=== PATIENT | female | born 1935 | race Caucasian/White ===

== ENCOUNTER → 2017-07-20 | Day surgery (SDC) | payer MEDICARE ==
[~2017-07-20] VITALS: Ht 149.9 cm; Wt 63.5 kg
[~2017-07-20] MED LIST: ACETAMINOPHEN 325 MG TAB PO PRN; ASPI81TA11 PO; CALTCHW5 PO; CENTCHW4 CHEW; CHLORHEXIDINE GLUCONATE 2 % 1 PACK (2 CLOTHS) TOPICAL PRN; ENAL10TA PO; HYALURONIDASE/LIDOCAINE/EPINEPHRINE/BUPIVACAINE 6 ML SYR LEFT EYE ONE; HYDR12.57 PO; INSULIN HUMAN REGULAR 1,000 UNITS/10 ML VIAL SQ PRN; LACTATED RINGER'S 1000 ML IV PRN; LIDOCAINE HCL 1% PF 30 ML VIAL ONE; LOVA20TA PO; METOPROLOL TARTRATE 25 MG TAB PO PRN; OCUVTAB4 PO; PLAV75TA29 PO; POVIDONE IODINE 5% (ANTISEPSIS KIT) 4 APPLICATIONS EACH NARE PRN; PROPARACAINE HCL 0.5% OPHT SOLN 15 ML BTL LEFT EYE ONE; PROPOFOL 200 MG/20 ML AMP ONE; SODIUM CHLORID 0.9% 500 ML IV PRN; SYSTSOL11 EACH EYE; TOBRAMYCIN/DEXAMETHASONE OPTH OINT 3.5 GM TUBE ONE
[2017-07-20 09:30] VITALS: PULSE 54
[2017-07-20] MEDS: FLURBIPROFEN 0.03% OPHT SOLN 2.5 ML BTL LEFT EYE SCH ×4 (09:30→09:45)
[2017-07-20] MEDS: CYCLOPENTOLATE HCL 1% OPHT SOLN 2 ML BTL LEFT EYE SCH ×4 (09:30→09:45)
[2017-07-20] MEDS: PHENYLEPHRINE HCL 10% OPTH SOLN 5 ML BTL LEFT EYE SCH ×4 (09:30→09:45)
[2017-07-20] MEDS: TROPICAMIDE 1% OPHT SOLN 15 ML BTL LEFT EYE SCH ×4 (09:30→09:45)
[2017-07-20 10:01] VITALS: PULSE 67
[2017-07-20 10:41] VITALS: TEMP 98
[2017-07-20 11:05] VITALS: BP 143/52; PULSE 68; RESP 16; O2SAT 100
--- NOTE | 2017-07-21 09:06 | MP ---
cc: ALEJANDRO KRISHNAN M.D. [facility] #[id number] DATE OF SURGERY 07/20/2017 PREOPERATIVE DIAGNOSIS Visually significant cataract left eye. POSTOPERATIVE DIAGNOSIS Visually significant cataract left eye. OPERATION Phacoemulsification with posterior chamber lens implantation, left eye. SURGEON Alejandro Krishnan MD ANESTHESIA Retrobulbar with MAC. COMPLICATIONS None PROCEDURE After informed consent was obtained, the patient was brought into the operative suite and placed on appropriate monitors by the Anesthesia Service. The patient had received a prior retrobulbar injection of local anesthetic by the Anesthesia Service in the holding area. The patient's operative eye was then prepped and draped in the usual sterile fashion. A wire lid speculum was placed. A paracentesis incision was made in the peripheral cornea with a 1 mm palmer keratome. The anterior chamber was filled with viscoelastic. The anterior chamber was then entered through a stepped, clear corneal incision using a sharp 3 mm palmer keratome. A circular tear capsulorrhexis was then made with a bent needle cystitome. Following hydrodissection of the lens nucleus with balanced saline, phacoemulsification of the nucleus was performed using a modified chopping technique. The remaining cortex was removed with irrigation/aspiration. The prior two procedures were both performed using the handpieces of the [employer] phaco unit. The capsular bag was then filled with viscoelastic. The intraocular lens was then injected into the capsular bag and positioned. The type of intraocular lens and its power can be found elsewhere in this chart. The remaining viscoelastic was then removed from the anterior chamber with the IA handpiece. The anterior chamber was reformed with balanced saline. The wound was then closed securely with stromal hydration. It was found to be watertight to an intraocular pressure of at least 30 mmHg by palpation. A small amount of balanced salt solution was then removed through the paracentesis site and the intraocular pressure at the end of the case was approximately 20 by palpation. All drapes were then removed. TobraDex ointment was then placed in the eye, which was closed beneath a semi-pressure patch dressing. The patient tolerated this procedure well and left the operating room awake and alert. The patient is to follow-up in my office in the morning. MD DANTE Camilo/ESTHELA /8:37 AM 8:57 AM
== END | disposition home or self-care (01) ==
LOC: PHSDC 08:12
PROVIDERS: ATTEND Optometrist Occupational Vision
DX: H25.812 Combined forms of age-related cataract, left eye (principal); H35.3122 Nonexudative age-related macular degeneration, left eye, intermediate dry stage; H43.813 Vitreous degeneration, bilateral; H04.123 Dry eye syndrome of bilateral lacrimal glands; I44.0 Atrioventricular block, first degree; H35.30 Unspecified macular degeneration; I35.0 Nonrheumatic aortic (valve) stenosis; I10 Essential (primary) hypertension; D69.6 Thrombocytopenia, unspecified; I27.20 Pulmonary hypertension, unspecified; I34.0 Nonrheumatic mitral (valve) insufficiency; M54.16 Radiculopathy, lumbar region; E78.5 Hyperlipidemia, unspecified
CPT/HCPCS: 00142; 66984; J7040; V2632

== ENCOUNTER 2018-07-25 10:50 | Inpatient (IN) ==
[2018-07-25] MEDS: Sod Chloride 0.9% Inj 1,000 ML IV.CONT SCH ×2 (03:30→15:30)
[2018-07-25] MEDS ORDERED: Sodium Chlor 0.9% Inj 500 ML IV.CONT ONE (11:15)
[2018-07-25] MEDS ORDERED: Chlorhexidine Gluconate 2% 1 Pack (2 Cloths) TOPICAL ONE (11:15)
[2018-07-25] MEDS ORDERED: Metoprolol Tartrate 25 MG Tablet PO ONE (11:15)
[2018-07-25] MEDS ORDERED: Aspirin 325 MG Tablet ONE (11:26)
[2018-07-25] MEDS ORDERED: Mupirocin 2% Nasal Oint Topical Syringe EACH NARE SCH (11:30)
[2018-07-25] MEDS ORDERED: Aspirin 325 MG Tablet PO SCH (11:30)
[2018-07-25] MEDS ORDERED: Chlorhexidine Gluconate 2% 1 Pack (2 Cloths) TOPICAL SCH (11:30)
[2018-07-25 11:59] LABS: Baso # (Auto) 0.1 th/mm3 (0.0-0.2); Baso % (Auto) 1.1 % (0.0-2.0); Eos # (Auto) 0.1 th/mm3 (0.0-0.4); Eos % (Auto) 2.6 % (0.0-4.0); Hematocrit 39.4 % (35.0-46.0); Hemoglobin 13.2 gm/dL (11.6-15.3); Lymph # (Auto) 1.8 th/mm3 (1.0-4.8); Lymph % (Auto) 32.8 % (9.0-44.0); Mean Corpuscular HGB Conc 33.6 % (32.0-36.0); Mean Corpuscular Volume 89.4 fL (80.0-100.0); Mean Platelet Volume 8.6 fL (7.0-11.0); Mono # (Auto) 0.4 th/mm3 (0.0-0.9); Mono % (Auto) 7.8 % (0.0-8.0); Neut % (Auto) 55.7 % (16.0-70.0); Platelet Count 176 th/mm3 (150-450); Red Blood Count 4.41 mil/mm3 (4.00-5.30); Red Cell Distribution Width 15.5 % (11.6-17.2); White Blood Count 5.5 th/mm3 (4.0-11.0)
[2018-07-25] MEDS ORDERED: ceFAZolin 2 GM Premix Inj 2 GM/50 ML PIGGYBACK IV.SIG SCH (12:00)
[2018-07-25 12:05] LABS: Activated Partial Thrombo Time 24.3 sec (24.3-30.1); INR 1.1 Ratio; Prothrombin Time 10.7 sec (9.8-11.6)
[2018-07-25 12:16] LABS: Calcium 9.6 mg/dL (8.5-10.1); Carbon Dioxide 26.2 meq/L (21.0-32.0); Potassium 3.7 meq/L (3.5-5.1)
[2018-07-25] MEDS ORDERED: Heparin 10,000 UNITS/10 ML Vial (for IV use) ONE (12:52)
[2018-07-25] MEDS ORDERED: Protamine Sulfate Inj 50 MG/5 ML Vial ONE (12:52)
[2018-07-25] MEDS ORDERED: Lidocaine PF 1% Inj 5 ML Syringe OTHER ONE (12:59)
--- NOTE | 2018-07-25 13:12 | P.HPCA ---
History of Present Illness Service: Cardiology Primary Care Physician: Andreina Salgado MD Chief Complaint: Severe aortic valve stenosis History of Present Illness: This is an 82-year-old female with past medical history of fibromatosis aortic valve stenosis, hyperlipidemia, hypertension, pulmonary hypertension who presents now for elective transcatheter aortic valve replacement. Patient follows with Dr. Cross in the outpatient setting. Patient had transthoracic echocardiogram which revealed severely reduced aortic valve area 0.66 cm and elevated gradient and abnormal dimensionless index, all consistent with severe aortic valve stenosis. Patient was evaluated by 2 cardiothoracic surgeons and felt to be intermediate risk for traditional surgical aortic valve replacement. Patient underwent full evaluation and workup for transcatheter aortic valve replacement and is here today for scheduled procedure. - Diagnosis (1) Aortic valve stenosis (2) Pulmonary hypertension (3) Chronic diastolic (congestive) heart failure Inpatient Certification: I certify that the inpatient services were ordered in accordance with Medicare regulations governing the order. This includes certification that hospital inpatient services are reasonable and necessary and in the case of services not specified as inpatient-only under 42 CFR 419.22(n), that they are appropriately provided as inpatient services in accordance to with the 2-midnight benchmark under 43 CFR 412.3(e) Review of Systems All other systems reviewed negative except as stated in HPI [facility] - History History Provided By: Patient - Medical History Medical History: Medical History (Last Updated 07/25/18 @ 13:05 by Darren Diez MD) Aortic valvar stenosis CVA (cerebral vascular accident) Chronic diastolic (congestive) heart failure First degree heart block HLD (hyperlipidemia) HTN (hypertension) Left-sided weakness Pulmonary hypertension - Tobacco History Smoking Status: Never smoker - Alcohol History How Often Do You Have a Drink Containing Alcohol: Never Medications and Allergies Active Medications: Active Medications Aspirin (Aspirin) 325 mg PO DIRECTOR IMAGING [facility] Stop: 07/28/18 11:27 Last Admin: 07/25/18 11:35 Dose: 325 mg Chlorhexidine Gluconate (Chlorhexidine 2% Cloth) 3 pack TOPICAL DIRECTOR IMAGING [facility] Stop: 07/28/18 11:27 Lactated Ringer's (Lr 1000 Ml Inj) 1,000 mls @ 30 mls/hr IV.CONT .Q24H ONE Stop: 07/26/18 11:14 Sodium Chloride (Ns Inj) 500 mls @ 30 mls/hr IV.CONT .[id number] ONE Stop: 07/26/18 03:54 Cefazolin Sodium/Dextrose (Ancef 2 Gm Premix Inj) 2 gm in 50 mls @ 100 mls/hr IV.SIG ONCE [facility] Stop: 07/25/18 23:00 Sodium Chloride (Ns Inj) 1,000 mls @ 125 mls/hr IV.CONT .Q8H [facility] Mupirocin (Bactroban 2% Nasal Oint) 1 applicatio EACH NARE DIRECTOR IMAGING [facility] Stop: 07/28/18 11:27 Povidone Iodine (Betadine 5% Antisepsis Kit) 1 applicatio TOPICAL DIRECTOR IMAGING [facility] Stop: 07/28/18 11:27 Allergies Allergy/AdvReac Type Severity Reaction Status Date / Time No Known Allergies Allergy Verified 07/25/18 11:31 Home Medications Medication Instructions Recorded Confirmed Type calcium carbonate-vitamin D3 1 tab PO DAILY 07/25/18 07/25/18 History [Calcium 600 + D(3)] clopidogrel [Plavix] 1 mg/kg PO DAILY 07/25/18 07/25/18 History docusate sodium [Colace] 100 mg PO BID 07/25/18 07/25/18 History lisinopril 10 mg PO DAILY 07/25/18 07/25/18 History lovastatin 20 mg PO QPM 07/25/18 07/25/18 History tramadol 50 mg PO TID 07/25/18 07/25/18 History vit C,S-Po-rplto-lutein-zeaxan 1 tab PO QAM AND QHS 07/25/18 07/25/18 History [PreserVision AREDS-2] Exam Vital signs: Vital Signs 07/25/18 12:01 Temperature 97.6 F Pulse Rate 69 Respiratory Rate 18 Blood Pressure 185/89 H Pulse Oximetry 98 Intake & Output 07/24/18 07/25/18 07/25/18 18:59 06:59 18:59 Weight 64.4 kg Other: Weight On Admission 64.4 kg - Constitutional no acute distress - Routine HEENT Exam Head: Present: normocephalic Eye: Absent: EOMI, PERRL - Routine Neck Exam Absent: JVD - Routine Cardiovascular Exam Present: murmur, irregularly irregular - Routine Abdominal Exam Present: soft, normoactive bowel sounds - Routine Extremities Exam Absent: edema - Routine Neurological Exam Present: oriented X3, CN II-XII intact. Absent: sensory deficit, motor deficit Results 07/25/18 11:05 07/25/18 11:05 Coagulation 07/25/18 Range/Units 11:05 PT 10.7 (9.8-11.6) sec APTT 24.3 (24.3-30.1) sec CBC 07/25/18 Range/Units 11:05 WBC 5.5 (4.0-11.0) th/mm3 RBC 4.41 (4.00-5.30) mil/mm3 Hgb 13.2 (11.6-15.3) gm/dL Hct 39.4 (35.0-46.0) % Plt Count 176 (150-450) th/mm3 Neut # (Auto) 3.0 (1.8-7.7) th/mm3 Lymph # (Auto) 1.8 (1.0-4.8) th/mm3 [place] # (Auto) 0.4 (0.0-0.9) th/mm3 Eos # (Auto) 0.1 (0.0-0.4) th/mm3 Baso # (Auto) 0.1 (0.0-0.2) th/mm3 Comprehensive Metabolic Panel 07/25/18 Range/Units 11:05 Sodium 142 (136-145) meq/L Potassium 3.7 (3.5-5.1) meq/L Chloride 107 (98-107) meq/L Carbon Dioxide 26.2 (21.0-32.0) meq/L BUN 20 H (7-18) mg/dL Creatinine 0.69 (0.50-1.00) mg/dL Calcium 9.6 (8.5-10.1) mg/dL Intake and Output 07/24/18 07/25/18 07/25/18 22:59 06:59 14:59 Other: Weight 64.4 kg Weight On Admission 64.4 kg Patient Weight 07/26/18 06:59 Weight 64.4 kg - EKG Interpretation EKG shows: atrial fibrillation Caprini VTE Risk Assessment Caprini VTE Risk Assessment: Moderate/High Risk (score >= 2) Caprini Risk Assessment Model: Point Value = 1 Point Value = 2 Point Value = 3 Point Value = 5 Age 41-60 Minor surgery BMI > 25 kg/m2 Swollen legs Varicose veins or History of unexplained or recurrent spontaneous Oral contraceptives or hormone replacement Sepsis (< 1 month) Serious lung disease, including pneumonia (< 1 month) Abnormal pulmonary function Acute myocardial infarction Congestive heart failure (< 1 month) History of inflammatory bowel disease Medical patient at bed rest Age 61-74 Arthroscopic surgery Major open surgery (> 45 min) Laparoscopic surgery (> 45 min) Malignancy Confined to bed (> 72 hours) Immobilizing plaster cast Central venous access Age >= 75 History of VTE Family history of VTE Factor V Leiden Prothrombin [id number] Lupus anticoagulant Anticardiolipin antibodies Elevated serum homocysteine Heparin-induced thrombocytopenia Other congenital or acquired thrombophilia Stroke (< 1 month) Elective arthroplasty Hip, pelvis, or leg fracture Acute spinal cord injury (< 1 month) Prophylaxis Regimen: Total Risk Factor Score Risk Level Prophylaxis Regimen 0-1 Low Early ambulation 2 Moderate Order ONE of the following: *Sequential Compression Device (SCD) *Heparin 5000 units SQ BID 3-4 Higher Order ONE of the following medications: *Heparin 5000 units SQ TID *Enoxaparin/Lovenox 40 mg SQ daily (WT < 150 kg, CrCl > 30 mL/min) *Enoxaparin/Lovenox 30 mg SQ daily (WT < 150 kg, CrCl > 10-29 mL/min) *Enoxaparin/Lovenox 30 mg SQ BID (WT < 150 kg, CrCl > 30 mL/min) AND/OR *Sequential Compression Device (SCD) 5 or more Highest Order ONE of the following medications: *Heparin 5000 units SQ TID (Preferred with Epidurals) *Enoxaparin/Lovenox 40 mg SQ daily (WT < 150 kg, CrCl > 30 mL/min) *Enoxaparin/Lovenox 30 mg SQ daily (WT < 150 kg, CrCl > 10-29 mL/min) *Enoxaparin/Lovenox 30 mg SQ BID (WT < 150 kg, CrCl > 30 mL/min) AND *Sequential Compression Device (SCD) Assessment and Plan - Assessment (1) Aortic valve stenosis Code(s): I35.0 - Nonrheumatic aortic (valve) stenosis Status: Acute (2) Pulmonary hypertension Code(s): I27.20 - Pulmonary hypertension, unspecified Status: Acute (3) Chronic diastolic (congestive) heart failure Code(s): I50.32 - Chronic diastolic (congestive) heart failure Status: Acute - Plan This is an 82-year-old female with diagnosis of severe aortic valve stenosis. Preoperative workup: STS score 5.7% [place] [employer] functional class III symptoms Body mass index 31 Frailty score 2/4 Electrocardiogram atrial fibrillation left axis deviation with left ventricular hypertrophy on June 27, 2018 Pulmonary function test from July 16, 2018 shows a mild restrictive lung disease with an FEV1 of 1.06 Transthoracic echocardiogram from July 16, 2018 shows jet velocity 2.9 m/s, mean gradient 19 mmHg, calculated valve area of 0.62 cm, dimensionless index 19.1, stroke volume index 24.7, ejection fraction 50-55%, mild to moderate aortic insufficiency, mild to moderate mitral insufficiency, mild to moderate tricuspid regurgitation Cardiac catheterization April 17, 2018 shows tortuous vessels with mild luminal irregularities Computed tomographic analysis from May 25, 2018 shows a short annulus diameter 24.5 mm, long anus diameter 28.4 mm, perimeter 83.1 mm, sinus of Valsalva 33.5 mm, sinotubular junction 32.9 mm, left coronary height 10 mm, right coronary height 13.7 mm, minimal luminal diameter of 6.8 mm on the right and 7.3 mm on the left Plan: Patient has severe aortic valve stenosis with paradoxical, low flow low gradient aortic stenosis with dimensionless index of 19.1. Patient is considered intermediate surgical risk for surgical aortic valve replacement. We will plan for percutaneous transcatheter aortic valve replacement using a Medtronic 34 Evolut R bioprosthetic valve.
[2018-07-25] MEDS ORDERED: fentaNYL Citrate Inj 100 MCG/2 ML Ampul ONE (13:15)
--- NOTE | 2018-07-25 14:19 | ECG ---
Date Performed: 07/25/2018 Time Performed: 11:11:22 PTAGE: 82 years EKG: Atrial fibrillation. Left axis deviation Left ventricular hypertrophy Abnormal ECG PREVIOUS TRACING : 01/06/2010 07.07 Compared to previous tracing, atrial fibrillation has repla [email or web address] Sinus rhythm . DOCTOR: Stephan Garcia Interpretating Date/Time 07/25/2018 14:17:29
[2018-07-25] MEDS ORDERED: Sugammadex Inj 200 MG/2 ML Vial IV.PUSH ONE (14:24)
[2018-07-25] MEDS ORDERED: Iohexol 300 MG/ML 50 ML Vial (for Rad Diag) IVCONTRAST ONE ×2 (14:27→14:29)
--- NOTE | 2018-07-25 14:34 | P.PCN ---
Date of procedure: 07/25/18 Pre-op diagnosis: severe aortic stenosis Procedure: Procedure: Transesophageal Echocardiography Diagnosis: Severe aortic stenosis Indications: Perioperative planning for transcatheter aortic valve replacement Consent: Obtained Anesthesia: General endotracheal anesthesia Description of the Procedure: The patient was sedated and mechanically ventilated. The echo probe was inserted easily and without resistance. At the conclusion of the procedure, the echo probe was removed. Please see detailed echocardiogram report for formal findings. Preliminary Findings (not confirmed): Pre-procedure: 1) mildly depressed LV EF 2) severe aortic stenosis 3) mild aortic regurgitation 4) trace mitral regurgitation 5) [id number] tricuspid regurgitation 6) evidence of left atrial hypertension by pulmonary vein flow 7) no evidence of intra-atrial shunting by color flow Doppler 8) no pericardial effusion Post-procedure: 1) s/p successful placement of transcatheter aortic valve 2) no evidence of bioprosthetic valve stenosis 3) trivial perivalvular leak 4) no pericardial effusion The patient tolerated the procedure well with no hemodynamic instability. There were no immediate complications noted. There was minimal EBL. I personally performed the procedure.
--- NOTE | 2018-07-25 14:37 | P.CONCC ---
History of Present Illness Service: Critical Care Medicine Consult date: 07/25/18 Requesting Physician: Darren Diez Reason for Consult: perioperative management of medical comorbidities Primary Care Provider: Andreina Salgado MD Family Provider: Andreina Salgado MD Chief Complaint: Severe aortic valve stenosis History of Present Illness: This is an 82-year-old female with severe aortic stenosis who underwent elective transcatheter aortic valve replacement. She underwent uncomplicated valve replacement presents to the CVICU in extubated stable condition arousing from anesthesia. Due to her somnolence arousing from anesthesia complete review of systems is unobtainable. Limited review of systems is negative for headache, chest pain, shortness of breath, sore throat, nausea, vomiting. Review of Systems unobtainable due to mental condition (arousing from anesthesia) PMFSH - History History Provided By: Patient, Medical Record - Medical History Medical History: Medical History (Last Reviewed 07/25/18 @ 14:37 by Gavin Marin MD) Aortic valvar stenosis CVA (cerebral vascular accident) Chronic diastolic (congestive) heart failure First degree heart block HLD (hyperlipidemia) HTN (hypertension) Left-sided weakness Pulmonary hypertension - Family History Family History: Family History (Last Updated 07/25/18 @ 14:39 by Gavin Marin MD) Other Family history non-contributory - Social History I have reviewed the patient's Social History: Yes - Tobacco History Smoking Status: Never smoker - Alcohol History How Often Do You Have a Drink Containing Alcohol: Never Medications and Allergies Active Medications: Active Medications Aspirin (Aspirin) 325 mg PO [employer]INE SAFETY ENGINEER [facility] Stop: 07/28/18 11:27 Last Admin: 07/25/18 11:35 Dose: 325 mg Chlorhexidine Gluconate (Chlorhexidine 2% Cloth) 3 pack TOPICAL MINE SAFETY ENGINEER [facility] Stop: 07/28/18 11:27 Lactated Ringer's (Lr 1000 Ml Inj) 1,000 mls @ 30 mls/hr IV.CONT .Q24H ONE Stop: 07/26/18 11:14 Sodium Chloride (Ns Inj) 500 mls @ 30 mls/hr IV.CONT .[id number] ONE Stop: 07/26/18 03:54 Cefazolin Sodium/Dextrose (Ancef 2 Gm Premix Inj) 2 gm in 50 mls @ 100 mls/hr IV.SIG ONCE [facility] Stop: 07/25/18 23:00 Last Infusion: 07/25/18 13:50 Dose: Infused Sodium Chloride (Ns Inj) 1,000 mls @ 125 mls/hr IV.CONT .Q8H [facility] Mupirocin (Bactroban 2% Nasal Oint) 1 applicatio EACH NARE MINE SAFETY ENGINEER [facility] Stop: 07/28/18 11:27 Povidone Iodine (Betadine 5% Antisepsis Kit) 1 applicatio TOPICAL MINE SAFETY ENGINEER [facility] Stop: 07/28/18 11:27 Allergies Allergy/AdvReac Type Severity Reaction Status Date / Time No Known Allergies Allergy Verified 07/25/18 11:31 Home Medications Medication Instructions Recorded Confirmed Type calcium carbonate-vitamin D3 1 tab PO DAILY 07/25/18 07/25/18 History [Calcium 600 + D(3)] clopidogrel [Plavix] 1 mg/kg PO DAILY 07/25/18 07/25/18 History docusate sodium [Colace] 100 mg PO BID 07/25/18 07/25/18 History lisinopril 10 mg PO DAILY 07/25/18 07/25/18 History lovastatin 20 mg PO QPM 07/25/18 07/25/18 History tramadol 50 mg PO TID 07/25/18 07/25/18 History vit C,B-Bz-iqbuv-lutein-zeaxan 1 tab PO QAM AND QHS 07/25/18 07/25/18 History [PreserVision AREDS-2] Physical Exam Vital signs: Vital Signs 07/25/18 12:01 Temperature 36.4 C Pulse Rate 69 Respiratory Rate 18 Blood Pressure 185/89 H Pulse Oximetry 98 Intake & Output 07/24/18 07/25/18 07/25/18 18:59 06:59 18:59 Intake Total 50 / 50 Balance 50 / 50 Weight 64.4 kg Intake: IV 50 / 50 Ancef 2 GM Premix Inj 2 gm In 50 / 50 50 ml @ 100 mls/hr IV.SIG ONCE [facility] Rx#:[id number] Other: Weight On Admission 64.4 kg Narrative: GENERAL: Frail elderly female lying in bed, arousing from anesthesia HEENT: Normocephalic. Atraumatic. Pupils equal, round, reactive, conjugate. Mucous membranes are moist NECK: Trachea is midline. There is no JVD. right IJ introducer sheath with transvenous pacer in place, site is clean and dry, dressing intact. CHEST: unlabored. equal chest rise. nc o2. CARDIOVASCULAR: normal rate, regular rhythm. Transvenous pacer is set VVI at a backup rate of 50. not currently paced. ABDOMEN: Soft, nontender, nondistended. No guarding. MUSCULOSKELETAL: Pulses 2+. No peripheral edema. bilateral groin sites are clean and dry, no evidence of hematoma, dressing intact. distal LE pulses are Dopplerable. NEUROLOGICAL: RASS -2. Arousing from anesthesia. follows commands. moves all extremities. no focal deficits. - Urinary Catheter Management Indwelling Temp Sensing Catheter Cath placed during this visit: yes Reason for continuing: Hourly intake/output Insertion date: 07/25/18 Insertion time: 13:15 Assessment and Plan - Assessment and Plan Plan: Assessment: 82-year-old female postop day 0 status post transcatheter aortic valve replacement. Admit to ICU for close urine output monitoring and frequent neurovascular checks. S/p TAVR today via groin access - anticoagulation per correctional officer sergeant - mivf - close uop monitoring - frequent neurovascular checks - frequent groin checks - OOB after flat time 1st degree AVB - keep TV pacer in overnight - intermittently pacer dependent during procedure - keep on tele. Hypertension - goal sbp < 180 - add back antihypertensives as needed Congestive Heart Failure secondary to valvulopathy Diastolic Heart Failure - mivf today - may need diuresis beginning after POD 1 Hyperlipidemia - restart home statin Prior CVA - continue ASA advance diet after flat time SCDs AM CBC, BMP Critical care medicine will continue to follow while patient remains in the CVICU.
--- NOTE | 2018-07-25 14:38 | P.OP ---
Anesthesia: GETA Surgeon: Nehemias Miller MD Operation and Findings: PREOPERATIVE DIAGNOSIS: 1. Severe Symptomatic Aortic stenosis. 2. CHF 3. Mild aortic Insufficiency 4. Atrial fibrillation POSTOPERATIVE DIAGNOSIS: Same OPERATION PERFORMED: 1. Transcatheter Aortic Valve Replacement (TAVR) with a Medtronic 34 mm Evolut R Tissue Valve. 2. Aortogram. 3. Percutaneous left femoral Vein Access and Bilateral Common Femoral Artery Access 4. Perclose (x2) closure of right Common Femoral artery. 5. Vascade closure of left Common Femoral Artery and Vein. 6. Fluoroscopy SURGEON: Nehemias Miller MD CO-SURGEON: Darren Diez MD TRAILER RENTAL CLERK SURGEON: Mono Valdes MD YARD CRANE OPERATOR: MICHELL Ventura MD ANESTHESIA: GETA PROCEDURE: The risks, benefits, complications, treatment options, and expected outcomes were discussed with the patient. The possibilities of reaction to medication, pulmonary aspiration, perforation of viscus, bleeding, recurrent infection, the need for additional procedures, failure to diagnose a condition, and creating a complication requiring transfusion or operation were discussed with the patient. The patient concurred with the proposed plan, giving informed consent. The site of surgery properly noted/marked. The patient was taken to the hybrid operating room and the procedure verified as Transcatheter Aortic Valve Replacement. A Time Out was held and the above information confirmed. Standard monitoring lines and Duong catheter were placed. General anesthesia was induced. The patient was prepped and draped in a sterile fashion. Initially, the left femoral arterial and venous access was acquired using a Seldinger percutaneous technique. The details of this procedure were dictated under separate note by cardiology. Once a pigtail was positioned in the aortic annulus and a temporary transvenous pacemaker wire was placed in the right ventricular apex and tested, the right femoral artery was accessed using a needle followed by a guidewire under fluoroscopic guidance. The patient was heparinized and two Perclose devices deployed at a 45 degree angle for later closure. Serial dilators were used to dilate the right femoral artery to 16 [place] caliber. The Medtronic sheath was then inserted into the external iliac artery up to the distal abdominal aorta. Arch aortography was performed to define the implant view. A 34 mm Medtronic Evolut R transcatheter aortic valve was then positioned in the annulus and deployed with the patient being rapidly paced. Following deployment, the valve apparatus was withdrawn and arch aortography and EUNICE were performed to assess the valve. The valve had trace perivalvular leak. Gradients were then measured and the sheath was removed with securing the Perclose sutures for hemostasis. Protamine was administered. The left arterial and Venous access sites were closed using the Vascade device. Sterile dressings were placed. At the end of the operation, all sponge, instruments, and needle counts were correct. The patient was transferred to the CVICU in stable condition. Findings: Trace PVL Implants: 34 Evolut R Medtronic Valve Complications: None Disposition: CVICU in stable condition
--- NOTE | 2018-07-25 15:18 | P.PCN ---
Date of procedure: 07/25/18 Pre-op diagnosis: Severe aortic valve stenosis Procedure: cracking unit operator: Oneil Diez MD Primary surgical tube former operator: Nehemias Miller MD Interventional Cardiology Assist: Mono Valdes MD Procedures performed: 1. Fluoroscopy with interpretation 2. Transesophageal echocardiogram 3. Transvenous temporary pacemaker 4. Ascending aortography 5. Left heart catheterization 6. Transcatheter aortic valve replacement with bioprosthetic Medtronic 34 mm Evolut R Methods: Risks, benefits, and alternatives were discussed with the patient. Patient understood and consented to the procedure. Patient was brought into the operating room and placed on the operating table. The chest and bilateral groins were prepped and draped in a sterile fashion. The left groin was anesthetized with 2% lidocaine. Left common femoral artery was cannulated and a 5 Bermudian 11 cm sheath was placed without difficulty. Left femoral vein was accessed and a 5 Bermudian 11 cm sheath was placed. Right femoral artery was accessed under fluoroscopic guidance and a micropuncture sheath was placed. Digital subtraction angiography confirmed intraluminal placement. An 8 Bermudian sheath was advanced into the right common femoral artery after 2 Perclose devices were deployed in the preclosed manner. Heparin was administered throughout the entire procedure to maintain appropriate anticoagulation. Transesophageal echocardiogram: See separate report Transvenous temporary pacemaker placement: Right internal jugular vein was accessed and a 5 Bermudian balloon tamp temporary transvenous pacemaker was advanced to the right ventricular apex. Appropriate capture was confirmed. Left heart catheterization: A 5 Bermudian AL-1 catheter was advanced to the ascending aorta. A 0.035 Amplatz Super Stiff wire was advanced across the aortic valve with some difficulty. The AL-1 catheter was advanced into the left ventricle. A standard 260 cm J- wire was advanced to the left ventricular apex and the AL-1 catheter removed. A 5 Bermudian angled pigtail catheter was advanced to the left ventricular apex and the J-wire removed. A 0.035 inch Medtronic Confida wire was advanced to the left ventricular apex and the pigtail catheter removed. Ascending aortography: Descending aortography was performed in late left anterior oblique and slightly caudal view. All 3 cusps were well visualized and put into parallax view Transcatheter aortic valve replacement: A 14 Bermudian Medtronic Evolute R device with in-line sheath was advanced through the right common femoral artery up to the level of a sending aortic arch over the Medtronic Confida wire. The device was advanced across the [place] aortic valve. Under fluoroscopic, angiographic, and transesophageal guidance, the device was slowly deployed during rapid ventricular pacing at 120 bpm. Appropriate positioning was confirmed and the device was fully released with full coverage of the non-, right, and left coronary cusps. Appropriate placement was confirmed under transesophageal echocardiogram. No significant gradient or perivalvular leak was noted. Intraoperative post deployment transesophageal echocardiogram results: 1. Aortic valve area 1.6 cm square 2. Mean gradient 6 mmHg 3. Velocity 1.92 cm/s 4. Trivial perivalvular leak Conclusions: 1. Successful transcatheter aortic valve replacement with 34 mm bioprosthetic Evolute R device Plan: Patient did require temporary transvenous pacemaker due to bradycardia at the time of deployment. We will have electrophysiology evaluate the patient for consideration of possible pacemaker placement. At completion of procedure she had recovery of heart rate with residual bundle branch block. Will obtain and limited 2D echocardiogram to evaluate for the newly placed aortic valve. Will add guideline directed medical therapy. Will monitor for any postprocedural complications. Hopeful for discharge in the next 48 hours.
[2018-07-25] MEDS ORDERED: Atropine Inj 1 MG/ML Vial IV.PUSH PRN (15:21)
[2018-07-25] MEDS ORDERED: Acetaminophen 325 MG Tablet PO PRN (15:21)
[2018-07-25] MEDS ORDERED: Benzocaine/Menthol 15 MG/3.6 MG SF Lozenge BUCCAL PRN (15:21)
[2018-07-25] MEDS ORDERED: Iohexol 350 MG/ML 100 ML Vial (for Cath Lab) IVCONTRAST ONE (15:29)
[2018-07-25] MEDS ORDERED: hydrALAZINE HCl Inj 20 MG/ML Vial ONE (15:31)
--- NOTE | 2018-07-25 15:37 | ECHRPT ---
Indication: CONCLUSIONS Mildly dilated left ventricle. Wall thickness is measured at the upper limits of normal. The left ventricular systolic function is mildly reduced with an estimated ejection fraction in the range of 45- 50%. The left atrial size is moderately dilated. Trileaflet aortic valve. Aortic valve sclerosis is present. Severe aortic valve stenosis. Status post transcatheter aortic valve replacement There is mild tricuspid valve regurgitation. BP: / HR: Rhythm: Technical Quality: Medications Complications Proc. Components FINDINGS LEFT VENTRICLE Mildly dilated left ventricle. Wall thickness is measured at the upper limits of normal. The left ventricular systolic function is mildly reduced with an estimated ejection fraction in the range of 45- 50%. RIGHT VENTRICLE Normal right ventricular size and systolic function. LEFT ATRIUM The left atrial size is moderately dilated. RIGHT ATRIUM The right atrial size is normal. ATRIAL SEPTUM Normal atrial septal thickness without atrial level shunting by limited color doppler interrogation. AORTA The aortic root and proximal ascending aorta are normal in size on limited imaging. MITRAL VALVE Mild thickening of the mitral valve leaflets. Trace mitral valve regurgitation. AORTIC VALVE Trileaflet aortic valve. Aortic valve sclerosis is present. Severe aortic valve stenosis. Status post transcatheter aortic valve replacement TRICUSPID VALVE There is mild tricuspid valve regurgitation. VESSELS The inferior vena cava is normal in size. PULMONARY VALVE The pulmonary valve is not well visualized. PERICADIUM No pericardial effusion. Darren Diez MD, FACC (Electronically Signed) Final Date:25 July 2018 15:35
[2018-07-25] MEDS: Morphine Sulfate Inj 2 MG/ML Vial IV.PUSH PRN ×2 (16:00→17:39)
[2018-07-25] MEDS ORDERED: hydrALAZINE HCl Inj 20 MG/ML Vial IV.PUSH ONE (16:30)
--- NOTE | 2018-07-25 20:15 | ECG ---
Date Performed: 07/25/2018 Time Performed: 15:31:46 PTAGE: 82 years EKG: Atrial fibrillation with PVC(s) Left axis deviation Cannot rule out septal infarct - age un determined Left ventricular hypertrophy Lateral ST-T changes are possibly due to ventricular hypertro phy Abnormal ECG PREVIOUS TRACING : 07/25/2018 11.11 No significant change from previous tracing noted. DOCTOR: Stephan Garcia Interpretating Date/Time 07/25/2018 20:15:24
[2018-07-26 05:05] LABS: Hematocrit 35.5 % (35.0-46.0); Mean Corpuscular HGB Conc 33.8 % (32.0-36.0); Mean Corpuscular Hemoglobin 30.5 pg (27.0-34.0); Mean Corpuscular Volume 90.1 fL (80.0-100.0); Mean Platelet Volume 8.5 fL (7.0-11.0); Platelet Count 147 th/mm3 (150-450); Red Blood Count 3.94 mil/mm3 (4.00-5.30); Red Cell Distribution Width 15.3 % (11.6-17.2)
[2018-07-26 05:29] LABS: Anion Gap 13 meq/L (5-15); Blood Urea Nitrogen 17 mg/dL (7-18); Calcium 8.5 mg/dL (8.5-10.1); Carbon Dioxide 23.5 meq/L (21.0-32.0); Chloride 110 meq/L (98-107); Glomerular Filtration Rate Greater Than 89 mL/min (>89); Glucose,Random 87 mg/dL (74-106); Potassium 3.6 meq/L (3.5-5.1); Sodium 146 meq/L (136-145)
[2018-07-26] MEDS ORDERED: Heparin/NS PF Inj 500 ML ONE ×2 (08:08→08:09)
[2018-07-26] MEDS ORDERED: Sodium Chlor 0.9% Inj 250 ML ONE (08:24)
[2018-07-26] MEDS ORDERED: Heparin 10,000 UNITS/10 ML Vial (for IV use) ONE (08:41)
--- NOTE | 2018-07-26 09:10 | CATHPROC ---
Patient Name: Cholo Zurita Study #: [id number] Initial MD: Joni Clemens Date of : 1935 Study Date: 07/26/2018 Cardiac Catheterization Report 07/26/2018 9:09:45 AM Financial #: [id number] 1 of 7 Patient Name: Cholo Zurita Study #: [id number] Initial MD: Joni Clemens Date of : 1935 Study Date: 07/26/2018 Entire Case Report Patient Information Patient Name Cholo Zurita Date of 1935 Age 82 years Financial # [id number] Gender F AlternateID Lab Number 6 Room Number 446 Height (in) 58.0 Height (cm) 147.3 BSA 1.57 Weight (lbs) 140.8 Weight (kg) 64.0 Patient Address/Phone Number Home Address [facility] Home Phone Number [address] [facility] [address] Study Information Study Number Admission Scheduled Start Study Start [id number] Jul 25 2018 10:50AM 07/26/2018 Jul 26 2018 8:16AM [place] Service Cath Endovascular Study Admit Source Facility Department [facility] Captain Physician and Clinical Staff Initial Joni Johnson Manual Lathe Machinist Sergey Tovar,RT(R) Manual Lathe Machinist Denai MarkhamRT(R) TECH2 Other Anesthesia, NET TRAINER Recorder Mireille Rico,LASHAWN Scrub Siobhan Young RCIS Procedures Performed Procedure Location (Site) Vessel Name Venogram Groin (right) Groin 07/26/2018 9:09:45 AM Financial #: [id number] 2 of 7 Patient Name: Cholo Zurita Study #: [id number] Initial MD: Joni Clemens Date of : 1935 Study Date: 07/26/2018 Equipment Time Research Coordinator Description Size Mfg Part Number Used/Scraped [id number] 08:19 COOK/PACER DILATOR SET (MICRA) FR8-12 Used *[id number] WIRE, GUIDE AMPLATZ STIFF [id number] 08:19 COOK/PACER 3MMJ Used 180CM *[id number] 08:19 Motosmarty BLANKET,WARM AIR CCL * Used *[id number] 08:19 Motosmarty PACK, CCL CUSTOM * Used *[id number] 08:19 MEDLINE PACER MANNING, LIMB * 2530 *[id number] Used [id number] 08:19 NAMIC TUBING, HIGH PRESSURE 20" 20" Used *[id number] 08:19 NYCOMED OMNIPAQUE, 300 MG, 50ML 50ML [id number] Used SUTURE, 0 ETHIBOND [CT1] (CX21D), 8pk 08:19 VITATRON MEDTRONIC MONITOR, PACEMAKER\\ICD 40668 *[id number] Used SYSTEM, TRANS-CATHETER [id number] 08:19 VITATRON MEDTRONIC Used PACING (MICRA) *[id number] Insurance Information Insurance Payor Medicare, Private Health Insurance Third Republican Third Republican Number [facility] Labs Hgb (g/dl) Hct (%) WBC (l/cumm) Platelets (thousands) 11.60-17.00 35.00-51.00 4.00-11.00 150.00-450.00 12.0 35.5 9 147 Glucose (mg/dl) BUN (mg/dl) Creatinine (mg/dl) BUN:Creatinine (1:x) 74.00-106.00 7.00-18.00 0.50-1.30 10.00-20.00 87 17 0.5 34 Na (meq/l) K (meq/l) 136.00-145.00 3.50-5.10 146 3.6 INR (PTT:PT) 0.90-1.10 1.1 CPK-MB (ng/ML) 0.50-3.60 Not Drawn 07/26/2018 9:09:45 AM Financial #: [id number] 3 of 7 Patient Name: Cholo Zurita Study #: [id number] Initial MD: Joni Clemens Date of : 1935 Study Date: 07/26/2018 Medication Medication Total Dose (Bolus/Oral) Medication Total Dosage/Unit 2% XYLOCAINE 50 mL HEPARIN 2000 units Medications (Bolus/Oral) Medication Time Given Dosage/Unit Administered By Reason 2% XYLOCAINE 07/26/2018 8:34:08 AM 50 mL Joni Clemens 50 mL 2% XYLOCAINE given in lab by Joni Clemens in Right Groin via Subcutaneous. Ordered by Kofi Clemens. HEPARIN 07/26/2018 8:43:57 AM 2000 units Joni Clemens 2000 units HEPARIN given in lab by Joni Clemens via Peripheral IV. Ordered by Joni Clemens. Medication (Drip) Medication Time Given Dosage/Unit Concentration/Unit Diluent (ml) Solution VANCOMYCIN DRIP 07/26/2018 8:27:12 AM 1 g 1 g VANCOMYCIN DRIP given in lab by Joni Clemens via Peripheral IV. Ordered by Joni Clemens. Initial Case Assessment Cardiovascular HR Rhythm NIBP Chest Pain 66 AFIB 164/67 0 Edema Present Skin color Skin None Normal Warm Dry Circulatory - Right Pulses Dorsalis Pedis 1 Scale (0,1,2,3,4,d) Circulatory - Left Pulses Dorsalis Pedis 1 Scale (0,1,2,3,4,d) Neurological State Oriented to time-place- Alert Moves all extremities person Respiration - General Respiration Rate SpO2 (%) (B/min) 18 100 07/26/2018 9:09:45 AM Financial #: [id number] 4 of 7 Patient Name: Cholo Zurita Study #: [id number] Initial MD: Joni Clemens Date of : 1935 Study Date: 07/26/2018 Final Case Assessment Cardiovascular HR Rhythm NIBP Chest Pain 65 DEMAND PACED 125/60 0 Edema Present Skin color Skin None Normal Warm Dry Circulatory - Right Pulses Dorsalis Pedis 1 Scale (0,1,2,3,4,d) Circulatory - Left Pulses Dorsalis Pedis 1 Scale (0,1,2,3,4,d) Neurological State Oriented to time-place- Alert Moves all extremities person Respiration - General Respiration Rate SpO2 (%) O2 (lpm) (B/min) 16 100 4 Chronological Log Time Study Chronological Log 7:55:00 Patient arrived via Bed. 7:55:00 Patient Name, D.O.B, / Armband Verified By R.N. 7:55:15 Anesthesia at bedside. Assumes care of patient. SEE RECORDS FOR MEDS AND VITALS DURING PROC EDURE 7:55:50 Verbal Stimulation=2 Physical Stimulation=2 Airway=2 Respiration=2 TOTAL=8. (0=absent, 1=li mited, 2=present) 8:19:51 Patient has been NPO for More than 6Hrs. 8:19:54 MD paged 8:20:02 Skin Breakdown- RIGHT WRIST BANDAGE RIGHT GROIN PRVIOUS TVAR SITE 8:20:21 Patient Warmer Placed on the Table. 8:20:22 Disposable Defibrillator Pads Placed On Patient. 8:20:23 Mumtaz Prominences Protected 8:20:26 A # 20 IV was noted in the Antecubital (right). Grade = 0 8:20:44 A # 20 IV was noted in the Wrist (left). Grade = 0 07/26/2018 9:09:45 AM Financial #: [id number] 5 of 7 Patient Name: Cholo Zurita Study #: [id number] Initial MD: Joni Clemens Date of : 1935 Study Date: 07/26/2018 8:20:59 A # 20 IV was noted in the Jugular Vein (right). Grade = 0 TEMP PACER SITE 8:21:23 History and physical on the chart or being dictated. Assessment: Initial Case, HR=66 BPM, Rhythm=AFIB, OBWB=120/67 mmhg, Chest Pain=0, Edema=None, Color=Normal, Skin = Warm, Dry Right Pulses: Zane Ped=1 8:21:24 Left Pulses: Zane Ped=1 Neurological: State=Alert, Ox3, RICHARDSON Respiration: Resp=18 B/min, LvV1=980 % 8:22:06 Table restraints applied according to hospital policy 8:22:09 MD responded 8:27:12 1 g VANCOMYCIN DRIP given in lab by Joni Clemens via Peripheral IV. Ordered by Darwin Clemens. 8:29:27 MD arrived. Time Out. Correct patient, procedure, procedure equipment, site and side verified with physicia n present. Time 8:33:39 concurred by MD, individual staff and NET TRAINER. Time Out #2 - Consents verified, patient in correct position, all results are labled and displa yed, safety precautions 8:33:56 taken, antibiotics administered. Time out concurred by MD, individual staff and NET TRAINER in procedu re 8:33:57 Case Start 8:34:08 50 mL 2% XYLOCAINE given in lab by Joni Clemens in Right Groin via Subcutaneous. Ordered b y Joni Clemens. 8:39:13 Vascular access was obtained in the Subclav. Vein (Rt). 8:39:22 A DILATOR SET (MICRA) FR8-12 was advanced into the Fem Vein (right) using the Modified Seld dio technique. 8:43:57 2000 units HEPARIN given in lab by Joni Clemens via Peripheral IV. Ordered by Una Clemens. 8:49:08 The Groin (right) was manually injected with 10 cc's of contrast. OMNIPAQUE, 300 MG, 50ML 5 0ML used. 8:49:57 A SYSTEM, TRANS-CATHETER PACING (MICRA) was connected and placed in the pocket. 8:50:07 Lead placement verified under fluoroscopy 8:50:12 The RV lead impedance and threshold being tested. 8:53:29 MICRA ANCHORED W/O COMPLICATIONS 8:53:55 Case End (Physician broke scrub) 8:54:14 Implant Procedure was performed. micra 8:54:28 A PPM Implant . (Single) MICRA 8:54:45 FIGURE 8 SUTURE PLACED SIOBHAN Saman HELD PRESURE X 20 MIN 8:59:45 Reference ECG taken 9:04:32 CVICU called. Spoke to DAVID Assessment: Final Case, HR=65 BPM, Rhythm=DEMAND PACED, YBDI=559/60 mmhg, Chest Pain=0, Edema=N one, Color=Normal, Skin = Warm, Dry Right Pulses: Zane Ped=1 9:06:02 Left Pulses: Zane Ped=1 Neurological: State=Alert, Ox3, RICHARDSON Respiration: Resp=16 B/min, VaZ5=905 %, O2=4 lpm 07/26/2018 9:09:45 AM Financial #: [id number] 6 of 7 Patient Name: Cholo Zurita Study #: [id number] Initial MD: Joni Clemens Date of : 1935 Study Date: 07/26/2018 End Study - Contrast Media Used In Study Contrast Total Opened (mL) Total Used (mL) Total Wasted (mL) Omnipaque 10 10 0 End Study - Maximum Contrast Load Max Contrast Load (mL) 640.0 End Study - Radiation Exposure Fluoro Time (minutes) 2.0 End Study - Patient Disposition Complications Transferred To Interventional Outcome No Telemetry Bed successful 07/26/2018 9:09:45 AM Financial #: [id number]
[2018-07-26] MEDS ORDERED: fentaNYL Citrate Inj 100 MCG/2 ML Ampul ONE (09:27)
--- NOTE | 2018-07-26 09:43 | MP ---
cc: Joni Clemens MD DATE OF OPERATION: PROCEDURE: Micra permanent pacemaker insertion. INDICATIONS FOR PROCEDURE: Ms. Zurita is an 82-year-old female status post TAVR, atrial fibrillation, developed complete AV block then intermittent left bundle branch block. Because of her very high risk for complete AV block decision for permanent pacemaker was taken. The risks, the nature, and the benefits of the procedure are clearly stated to her. Risks include pneumothorax, cardiac perforation, stroke, and even . She understood and agreed to proceed. DESCRIPTION OF PROCEDURE: After the informed consent was obtained, the patient was brought to the EP lab where she was prepped and draped in the usual sterile fashion. Conscious sedation was initiated and maintained throughout the procedure by the anesthesiologist. Once sedation was verified, the right and left inguinal area was anesthetized with 2% Xylocaine. Using modified Seldinger technique, the right femoral vein was cannulated on 1 occasion and a stiff Amplatz was advanced all the way to the superior vena cava. Then less than a centimeter incision was made at the entry point. Then, 2-0 suture at the entry point. Then, a 2-0 Ethibond suture was placed in a purse-string fashion around the wire. Then, the area was previously dilated using an 8, 12, 16, and 20-Occitan dilator. Then, the Micra sheath was advanced all the way to the mid right atrium. Subsequently, the delivery system was advanced and the Micra sheath was pulled back at the level of the IVC. At that point, the device was placed at the septal area. After delivery, we confirmed that the device was well anchored in the septum. After adequate pacing and sensing thresholds obtained, we released the device. Threshold was excellent. No incident to report. The patient tolerated the procedure. Blood loss minimal. We did use less than 5 mL of contrast. IMPLANTED HARDWARE: The permanent pacemaker is a [employer] model number [id number], serial number [id number]. SENSING: Sensing is at over 20 millivolts. THRESHOLD: The right ventricular threshold in bipolar mode was 0.38 volt at 0.24 millisecond, lead impedance 600, home sensing over 20 millivolts. SETTING: The device set at VVI 50 for now. CONCLUSION: Successful Micra permanent pacemaker insertion. RECOMMENDATIONS: The patient is going to be transferred to the recovery room. He will be observed. When stable, can be discharged home. Further decision by the managing team. MD AMBER Butcher/sam , 09:10 AM , 09:21 AM
[2018-07-26] MEDS: Sod Chloride 0.9% Inj 1,000 ML IV.CONT SCH ×3 (09:50→21:10)
[2018-07-26] MEDS: Ferrous Sulfate 325 MG Tablet PO SCH (09:53)
[2018-07-26] MEDS ORDERED: Iohexol 350 MG/ML 50 ML Vial (for Cath Lab) IVCONTRAST ONE (10:08)
--- NOTE | 2018-07-26 10:47 | MB ---
cc: Joni Clemens MD DATE: 07/25/2018 REASON FOR CONSULT: Status post TAVR, AV block, atrial fibrillation. HISTORY OF PRESENT ILLNESS: Mrs. Zurita is an 82-year-old female with history of aortic valve stenosis, hyperlipidemia, high blood pressure, pulmonary hypertension, atrial fibrillation, status post transaortic valve replacement developed a complete AV block that required pacing during the procedure. Subsequently, the patient switched to left bundle branch block. That indicates Alexi disease. I was consulted for evaluation and management. The chart was reviewed. The patient was evaluated. ALLERGIES: NONE. SOCIAL HISTORY: Negative for smoking and drinking. FAMILY HISTORY: Noncontributory to her current medical condition. MEDICATIONS: Mrs. Zurita is currently on Plavix, aspirin, metoprolol p.r.n. REVIEW OF SYSTEMS: Currently, the patient has no chest pain, no chest discomfort. Feeling better. No vomiting. No fever. PHYSICAL EXAMINATION: GENERAL: Alert, fully oriented. VITAL SIGNS: Blood pressure is 120/56, pulse 43 irregular, respiratory rate 18. LUNGS: Ventilated. CARDIOVASCULAR: S1, S2. Regular. No gallop. ABDOMEN: Soft. No masses. EXTREMITIES: No edema. LABORATORY DATA: Electrocardiogram: Atrial fibrillation, diffuse ST changes. 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 She is going to need a pacemaker. The risks, the nature, and the benefits of the procedure are clearly stated to her and her family. Risks include pneumothorax, cardiac perforation, stroke, and even . She understood and agreed to proceed. Procedure will be performed during hospitalization. MD AMBER Butcher/sam/adonay , 09:13 AM , 09:21 AM
--- NOTE | 2018-07-26 12:11 | P.PNCC ---
Subjective Subjective Remarks/Hospital Course: This is an 82-year-old female with severe aortic stenosis who underwent elective transcatheter aortic valve replacement. She underwent uncomplicated valve replacement presents to the CVICU in extubated stable condition arousing from anesthesia. Due to her somnolence arousing from anesthesia complete review of systems is unobtainable. Limited review of systems is negative for headache, chest pain, shortness of breath, sore throat, nausea, vomiting. 07/26: Patient went for PPM placement, tolerated well and return to the CVICU in stable condition. She offers no complaints. Objective Vital Signs / I&O: Vital Signs 07/25/18 15:00 07/25/18 15:35 07/25/18 17:40 Temperature 98.1 F Pulse Rate 75 72 Respiratory Rate 16 16 Blood Pressure 126/84 Pulse Oximetry 97 07/25/18 18:00 07/25/18 20:00 07/25/18 20:08 Temperature 97.6 F 98.4 F Pulse Rate 66 68 Respiratory Rate 16 16 Blood Pressure 120/60 136/65 Pulse Oximetry 98 97 99 07/25/18 23:00 07/26/18 03:00 07/26/18 07:00 Temperature 98.2 F 98.0 F 97.9 F Pulse Rate 71 54 L 43 L Respiratory Rate 15 15 17 Blood Pressure 122/48 L 116/60 120/56 L Pulse Oximetry 94 L 94 L 96 07/26/18 08:05 07/26/18 10:12 07/26/18 11:54 Temperature 97.9 F Pulse Rate 60 Respiratory Rate 16 16 Blood Pressure 121/67 Pulse Oximetry 96 96 Intake & Output 07/25/18 07/26/18 07/26/18 18:59 06:59 18:59 Intake Total 900 / 900 240 / 240 950 / 950 Output Total 835 / 835 300 / 300 Balance 65 / 65 -60 / -60 950 / 950 Weight 64.4 kg 64 kg Intake: IV 50 / 50 950 / 950 NS Inj 250 ML @ 0 mls/hr .ROUTE 250 / 250 .STK-MED ONE Rx#:[id number] Ancef 2 GM Premix Inj 2 gm In 50 / 50 50 ml @ 100 mls/hr IV.SIG ONCE JAZ Rx#:[id number] Oral 50 / 50 240 / 240 Anesthesia Amount 800 / 800 Output: Urine 300 / 300 Estimated Blood Loss 40 / 40 Urine Amount (Catheter) 795 / 795 Indwelling Temp Sensing 795 / 795 Catheter Other: Date of Last Bowel Movement 07/25/18 Weight On Admission 64.4 kg Result Diagrams: 07/26/18 04:26 07/26/18 04:26 Objective Remarks: GEN: Elderly female lying in bed, appears comfortable, no acute distress HEENT: NCAT NECK: Right IJ sheath present CARDIO: Regular, paced at 60 BPM PULM: Clear to auscultation bilaterally ABD/GI: Soft and non-tender EXT/MSK: Right wrist and right groin dressings C/D/I SKIN: Intact NEURO: A&Ox3, no focal neuro deficits PSYCH: Calm, appropriate affect Assessment and Plan - Assessment and Plan Plan: Assessment: 82yF POD# 1 s/p transcatheter aortic valve replacement, POD# 0 s/p permanent pacemaker insertion. S/p TAVR via groin access, POD #1 - Anticoagulation per pulley mortiser operator - Cardiac diet, d/c IVF Complete AVB - s/p RV permanent pacemaker insertion - F/U AM CXR Hypertension - Goal sbp < 180 - Restart home antihypertensives as tolerated Congestive Heart Failure secondary to valvulopathy Diastolic Heart Failure - D/C IVF - May need diuresis beginning after POD 1 Hyperlipidemia - Continue home statin Prior CVA - Continue ASA, plavix Cardiac diet SCDs AM CBC, BMP Critical care medicine will continue to follow while patient remains in the CVICU. Level 2 follow up visit. To help prompt me to consider important information that might be impacting today's encounter and assessment, information from prior notes written by myself or my colleagues may have been "brought forward" into today's note. My signature on this note, however, is an attestation that I personally performed the exam, history, and/or decision-making noted today, and, unless otherwise indicated, the interactions with patient, family, and staff as well as the review of records all occurred today. I also attest that the listed assessment and stated plan reflect my best clinical judgment today based on the combination of historical information, prior notes, and today's exam/ interactions. Code Status: Full
--- NOTE | 2018-07-26 12:55 | P.PNCA ---
Subjective Interval history: No acute events. Had a micra placed earlier today. Medications and Allergies Active Medications: Active Medications Acetaminophen (Tylenol) 650 mg PO Q4H PRN PRN Reason: PAIN SCALE 1 TO 2 Stop: 07/26/18 15:20 Aspirin (Aspirin) 325 mg PO [employer] [facility] Stop: 07/28/18 11:27 Last Admin: 07/25/18 11:35 Dose: 325 mg Aspirin (Aspirin Chew) 81 mg PO DAILY [facility] Last Admin: 07/26/18 09:53 Dose: 81 mg Atropine Sulfate (Atropine Inj) 0.5 mg IV.PUSH UNSCH PRN PRN Reason: VAGAL REPONSE Stop: 07/26/18 15:20 Benzocaine/Menthol (Cepacol Max Strength) 1 lozenge BUCCAL Q3H PRN PRN Reason: SORE THROAT Stop: 07/26/18 15:20 Chlorhexidine Gluconate (Chlorhexidine 2% Cloth) 3 pack TOPICAL [employer] [facility] Stop: 07/28/18 11:27 Last Admin: 07/26/18 06:29 Dose: 3 pack Clopidogrel Bisulfate (Plavix) 75 mg PO DAILY [facility] Last Admin: 07/26/18 09:53 Dose: 75 mg Ferrous Sulfate (Ferosul) 325 mg PO DAILY [facility] Last Admin: 07/26/18 09:53 Dose: 325 mg Sodium Chloride (Ns Inj) 1,000 mls @ 10 mls/hr IV.CONT .Q24H [facility] Last Admin: 07/26/18 09:52 Dose: Not Given Morphine Sulfate (Morphine Inj) 2 mg IV.PUSH Q30M PRN PRN Reason: BREAKTHROUGH PAIN Last Admin: 07/25/18 17:39 Dose: 2 mg Mupirocin (Bactroban 2% Nasal Oint) 1 applicatio EACH NARE [employer] [facility] Stop: 07/28/18 11:27 Oxycodone/Acetaminophen (Percocet 5/325 Mg) 1 tab PO Q6H PRN PRN Reason: PAIN SCALE 3 TO 5 Last Admin: 07/26/18 11:27 Dose: 1 tab Povidone Iodine (Betadine 5% Antisepsis Kit) 1 applicatio TOPICAL [employer] [facility] Stop: 07/28/18 11:27 Last Admin: 07/26/18 06:28 Dose: 1 applicatio Allergies Allergy/AdvReac Type Severity Reaction Status Date / Time No Known Allergies Allergy Verified 07/25/18 11:31 Home Medications Medication Instructions Recorded Confirmed Type calcium carbonate-vitamin D3 1 tab PO DAILY 07/25/18 07/25/18 History [Calcium 600 + D(3)] clopidogrel [Plavix] 1 mg/kg PO DAILY 07/25/18 07/25/18 History docusate sodium [Colace] 100 mg PO BID 07/25/18 07/25/18 History lisinopril 10 mg PO DAILY 07/25/18 07/25/18 History lovastatin 20 mg PO QPM 07/25/18 07/25/18 History tramadol 50 mg PO TID 07/25/18 07/25/18 History vit C,X-Cl-ishgz-lutein-zeaxan 1 tab PO QAM AND QHS 07/25/18 07/25/18 History [PreserVision AREDS-2] Physical Exam Vital signs: Vital Signs 07/25/18 15:00 07/25/18 15:35 07/25/18 17:40 Temperature 98.1 F Pulse Rate 75 72 Respiratory Rate 16 16 Blood Pressure 126/84 Pulse Oximetry 97 07/25/18 18:00 07/25/18 20:00 07/25/18 20:08 Temperature 97.6 F 98.4 F Pulse Rate 66 68 Respiratory Rate 16 16 Blood Pressure 120/60 136/65 Pulse Oximetry 98 97 99 07/25/18 23:00 07/26/18 03:00 07/26/18 07:00 Temperature 98.2 F 98.0 F 97.9 F Pulse Rate 71 54 L 43 L Respiratory Rate 15 15 17 Blood Pressure 122/48 L 116/60 120/56 L Pulse Oximetry 94 L 94 L 96 07/26/18 08:05 07/26/18 10:12 07/26/18 11:54 Temperature 97.9 F Pulse Rate 60 Respiratory Rate 16 16 Blood Pressure 121/67 Pulse Oximetry 96 96 Intake & Output 07/25/18 07/26/18 07/26/18 18:59 06:59 18:59 Intake Total 900 / 900 240 / 240 950 / 950 Output Total 835 / 835 300 / 300 Balance 65 / 65 -60 / -60 950 / 950 Weight 64.4 kg 64 kg Intake: IV 50 / 50 950 / 950 NS Inj 250 ML @ 0 mls/hr .ROUTE 250 / 250 .STK-MED ONE Rx#:[id number] Ancef 2 GM Premix Inj 2 gm In 50 / 50 50 ml @ 100 mls/hr IV.SIG ONCE JAZ Rx#:[id number] Oral 50 / 50 240 / 240 Anesthesia Amount 800 / 800 Output: Urine 300 / 300 Estimated Blood Loss 40 / 40 Urine Amount (Catheter) 795 / 795 Indwelling Temp Sensing 795 / 795 Catheter Other: Date of Last Bowel Movement 07/25/18 Weight On Admission 64.4 kg - Constitutional no acute distress - Routine HEENT Exam Head: Present: normocephalic Eye: Present: EOMI - Routine Neck Exam Absent: JVD - Routine Respiratory Exam Present: CTA bilaterally - Routine Cardiovascular Exam Present: RRR, S1, S2 - Routine Abdominal Exam Present: soft, normoactive bowel sounds. Absent: tenderness - Routine Extremities Exam Present: cyanosis. Absent: edema - Routine Neurological Exam Present: alert, oriented X3, CN II-XII intact - Urinary Catheter Management Indwelling Temp Sensing Catheter Cath placed during this visit: yes Reason for continuing: Hourly intake/output Insertion date: 07/25/18 Insertion time: 13:15 Results 07/26/18 04:26 07/26/18 04:26 Coagulation 07/25/18 Range/Units 11:05 PT 10.7 (9.8-11.6) sec APTT 24.3 (24.3-30.1) sec CBC 07/25/18 07/26/18 Range/Units 11:05 04:26 WBC 5.5 9.0 D (4.0-11.0) th/mm3 RBC 4.41 3.94 L (4.00-5.30) mil/mm3 Hgb 13.2 12.0 (11.6-15.3) gm/dL Hct 39.4 35.5 (35.0-46.0) % Plt Count 176 147 L (150-450) th/mm3 Neut # (Auto) 3.0 (1.8-7.7) th/mm3 Lymph # (Auto) 1.8 (1.0-4.8) th/mm3 Wilkes # (Auto) 0.4 (0.0-0.9) th/mm3 Eos # (Auto) 0.1 (0.0-0.4) th/mm3 Baso # (Auto) 0.1 (0.0-0.2) th/mm3 Comprehensive Metabolic Panel 07/25/18 07/26/18 Range/Units 11:05 04:26 Sodium 142 146 H (136-145) meq/L Potassium 3.7 3.6 (3.5-5.1) meq/L Chloride 107 110 H (98-107) meq/L Carbon Dioxide 26.2 23.5 (21.0-32.0) meq/L BUN 20 H 17 (7-18) mg/dL Creatinine 0.69 0.57 (0.50-1.00) mg/dL Calcium 9.6 8.5 D (8.5-10.1) mg/dL Intake and Output 07/25/18 07/26/18 07/26/18 22:59 06:59 14:59 Intake Total 850 / 850 240 / 240 950 / 950 Output Total 835 / 835 300 / 300 Balance 15 / 15 -60 / -60 950 / 950 Intake: IV 950 / 950 NS Inj 250 ML @ 0 mls/hr .ROUTE 250 / 250 .[facility]-MED ONE Rx#:[id number] Oral 50 / 50 240 / 240 Anesthesia Amount 800 / 800 Output: Urine 300 / 300 Estimated Blood Loss 40 / 40 Urine Amount (Catheter) 795 / 795 Indwelling Temp Sensing 795 / 795 Catheter Other: Date of Last Bowel Movement 07/25/18 Weight 64 kg Assessment and Plan - Plan Severe Aortic Stenosis-successful TAVR in a horizontal aorta. Gradient wnl. Trivial PVLL Conduction disease s/p AVR-PPM tosha domingo d/flip lopez
--- NOTE | 2018-07-26 13:04 | ECHRPT ---
Indication: HEART FAILURE CONCLUSIONS Focused bedside echo to evaluate post Transcatheter Aortic Valve. The left ventricular systolic function is normal with an estimated ejection fraction in the range of 55-60%. Normal left ventricular size and wall thickness. No regional wall motion abnormalities are present. The aortic valve prosthesis is normal to two-dimensional, color flow and Doppler interrogation. Aortic valve area is 1.4 cm. mean gradient 9 mmHg. There is trivial perivalvular regurgitation. There is moderate tricuspid regurgitation. The estimated pulmonary arterial pressure is 37.5 mmHg. BP: / HR: Rhythm: Sinus MEASUREMENTS (Male / Female) Normal Values Technical Quality:Excellent 2D ECHO LV Diastolic Diameter PLAX 4.8 cm 4.2 - 5.9 / 3.9 - 5.3 cm LV Systolic Diameter PLAX 3.3 cm IVS Diastolic Thickness 1.1 cm 0.6 - 1.0 / 0.6 - 0.9 cm LVPW Diastolic Thickness 1.0 cm 0.6 - 1.0 / 0.6 - 0.9 cm LV Relative Wall Thickness 0.4 LVOT Diameter 1.9 cm LV Ejection Fraction MOD 4C 61.6 % LV Ejection Fraction 4C AL 61.8 % M-MODE Aortic Root Diameter MM 1.5 cm AV Cusp Separation MM 0.9 cm DOPPLER AV Peak Velocity 199.5 cm/s AV Peak Gradient 15.9 mmHg AV Mean Gradient 9.0 mmHg AV Velocity Time Integral 41.5 cm LVOT Peak Velocity 102.0 cm/s LVOT Peak Gradient 4.2 mmHg LVOT Velocity Time Integral 19.8 cm AV Area Cont Eq vti 1.4 cm AV Area Cont Eq pk 1.4 cm TR Peak Velocity 262.0 cm/s TR Peak Gradient 27.5 mmHg Right Atrial Pressure 10.0 mmHg Pulmonary Artery Systolic Pressu 37.5 mmHg Right Ventricular Systolic Press 37.5 mmHg FINDINGS LEFT VENTRICLE The left ventricular systolic function is normal with an estimated ejection fraction in the range of 55-60%. Normal left ventricular size. Wall thickness is normal. No regional wall motion abnormalities are present. AORTIC VALVE The aortic valve prosthesis is normal to two-dimensional, color flow and Doppler interrogation. Aortic valve area is 1.4 cm. Aortic valve mean gradient is 9 mmHg. TRICUSPID VALVE Structurally normal tricuspid valve. There is moderate tricuspid regurgitation. The estimated pulmonary arterial pressure is 37.5 mmHg. Mono Valdes MD (Electronically Signed) Final Date:26 July 2018 13:03
[2018-07-27 03:27] VITALS: RESP 16
--- NOTE | 2018-07-27 08:39 | P.DS ---
Date of admission: 07/25/18 10:50 Primary care physician: Andreina Salgado MD Attending physician on discharge: Darren Diez Anticipated date of discharge: 07/27/18 Brief History from admission: This is an 82-year-old female with past medical history of fibromatosis aortic valve stenosis, hyperlipidemia, hypertension, pulmonary hypertension who presents now for elective transcatheter aortic valve replacement. Patient follows with Dr. Cross in the outpatient setting. Patient had transthoracic echocardiogram which revealed severely reduced aortic valve area 0.66 cm and elevated gradient and abnormal dimensionless index, all consistent with severe aortic valve stenosis. Patient was evaluated by 2 cardiothoracic surgeons and felt to be intermediate risk for traditional surgical aortic valve replacement. Patient underwent full evaluation and workup for transcatheter aortic valve replacement and is here today for scheduled procedure. Patient update on day of discharge: doing well no complaints sitting up in chair eating breakfast DS: Diagnosis - Discharge Diagnosis (1) Aortic valve stenosis Status: Acute (2) Pulmonary hypertension Status: Acute (3) Chronic diastolic (congestive) heart failure Status: Chronic DS: Medications - Discharge Medications Prescriptions: aspirin 81 mg PO DAILY #30 tab ferrous sulfate [FeroSul] 325 mg PO DAILY #30 tab DS: Summary Hospital Course: Patient presented for elective transcatheter aortic valve replacement. Procedure went well without any periprocedural or postprocedural complications. Patient was advised by electrophysiology following the procedure secondary to prolonged pauses after deployment of the valve. It was elected that the patient should receive a pacemaker. Pacemaker was placed yesterday. Patient had no complications related to the procedure. Patient's been ambulating well without complaints. - Time Spent with Patient Total time spent providing and/or coordinating discharge services: Less than 30 minutes Exam Vital signs: Vital Signs 07/26/18 10:12 07/26/18 11:54 07/26/18 15:00 Temperature 97.9 F 97.6 F Pulse Rate 60 81 Respiratory Rate 16 16 18 Blood Pressure 121/67 124/59 L Pulse Oximetry 96 98 07/26/18 19:00 07/26/18 23:00 07/27/18 03:00 Temperature 98.2 F 97.6 F 97.8 F Pulse Rate 60 61 64 Respiratory Rate 14 14 16 Blood Pressure 150/68 H 147/61 H 159/77 H Pulse Oximetry 94 L 94 L 97 07/27/18 05:02 07/27/18 05:03 Temperature Pulse Rate 60 62 Respiratory Rate Blood Pressure Pulse Oximetry Intake & Output 07/26/18 07/27/18 07/27/18 18:59 06:59 18:59 Intake Total 1190 / 1190 240 / 240 Balance 1190 / 1190 240 / 240 Weight 67.5 kg Intake: IV 950 / 950 NS Inj 250 ML @ 0 mls/hr .ROUTE 250 / 250 .[facility]K-MED ONE Rx#:[id number] Oral 240 / 240 240 / 240 Other: # Voids 3 # Bowel Movements 0 - Constitutional no acute distress - Routine HEENT Exam Head: Present: normocephalic Eye: Present: EOMI, PERRL ENT: Present: mucous membranes moist - Routine Neck Exam Absent: JVD - Routine Respiratory Exam Present: CTA bilaterally - Routine Cardiovascular Exam Present: RRR. Absent: murmur - Routine Neurological Exam Present: oriented X3, CN II-XII intact. Absent: sensory deficit, motor deficit Results Procedures completed during hospitalization: Transcatheter aortic valve replacement Discharge Plan - Discharge Disposition Patient Disposition: Discharge Home - Discharge Condition Condition: Good - Discharge Order Discharge Orders: Discharge Order (Routine); Ordered 07/27/18 Ordered By: Darren Diez Cardiology Clear for Discharge (Routine); Ordered 07/27/18 Ordered By: Darren Diez - Physicians Team Primary Care Provider: Andreina Salgado Attending Provider: Darren Diez Other Providers: Joni Clemens MD ; Delmi Villa MD - Rxs /Orders / Referrals /Forms Prescriptions: New aspirin 81 mg Tablet,Chewable 81 mg PO DAILY Qty: 30 RF: 11 ferrous sulfate [FeroSul] 325 mg (65 mg iron) Tablet 325 mg PO DAILY Qty: 30 RF: 1 Continue calcium carbonate-vitamin D3 [Calcium 600 + D(3)] 600 mg calcium- 200 unit Capsule 1 tab PO DAILY clopidogrel [Plavix] 75 mg Tablet 1 mg/kg PO DAILY docusate sodium [Colace] 100 mg Capsule 100 mg PO BID lisinopril 10 mg Tablet 10 mg PO DAILY lovastatin 20 mg Tablet 20 mg PO QPM tramadol 50 mg Tablet 50 mg PO TID vit C,Q-Ig-fmhve-lutein-zeaxan [PreserVision AREDS-2] [id number] mg-unit-mg -mg Capsule 1 tab PO QAM AND QHS Referrals: Andreina Salgado MD [Primary Care Provider] - See Instructions - Discharge Instructions Patient Printed Instructions: Transcatheter Aortic Valve Replacement (DC), Pacemaker (DC)
[2018-07-27 08:45] VITALS: BP 138/63; PULSE 60; TEMP 98.3; O2SAT 95
[2018-07-27] MEDS: Ferrous Sulfate 325 MG Tablet PO SCH (09:00)
--- NOTE | 2018-07-27 10:41 | XR ---
EXAM DATE: 07/27/2018 6:00 AM EDT AGE/SEX: 82 years / Female INDICATIONS: . S/P pacemaker insertion. CLINICAL DATA: This is the patient's initial encounter. Patient reports that signs and symptoms have been present for 1 day and indicates a pain score of 0/10. MEDICAL/SURGICAL HISTORY: Cardiovascular disease. Pacemaker. COMPARISON: No prior exams available for comparison. FINDINGS: Patient had a mini pacemaker inserted. TAVR prosthesis is noted. Moderate cardiomegaly without pneumothorax or failure. Degenerative changes in the thoracic spine and about both AC joints. CONCLUSION: Cardiomegaly without failure TAVR prosthesis noted No pneumothorax. Electronically signed by: Uvaldo Gamboa MD 07/27/2018 10:40 AM EDT
== END 2018-07-27 12:00 | disposition home or self-care (01) ==
LOC: HDIC 10:50 → HCVI 15:00 → HCPC 07-26 09:22 → HCVI 07-26 09:26 → HCPC 07-26 13:10
PROVIDERS: ADMIT Internal Medicine; ATTEND Internal Medicine
PROC: TAVRHYB (ICD-10-PCS; 2018-07-25 13:30)